=== PATIENT | male | born 1970 | race Caucasian/White ===

== ENCOUNTER 2016-12-19 08:22 | Emergency (ER) | payer MEDICAID ==
[2016-12-19 08:43] VITALS: BP 133/66
--- NOTE | 2016-12-19 09:27 | EDM.PDOC ---
ED HPI GENERAL MEDICAL PROBLEM - General Chief Complaint: Medication Administration Stated Complaint: Rx NEEDED Time Seen by Provider: 12/19/16 08:25 Source of Information: Reports: Patient History Limitations: Reports: No limitations - History of Present Illness INITIAL COMMENTS - FREE TEXT/NARRATIVE: HISTORY AND PHYSICAL: History of present illness: 46-year-old male with a history of asthma, nonsmoker, now presents emergency department complaining of mild wheezing and requesting Proventil prescription. Patient states that he uses his albuterol inhaler daily however he has never used a spacer. He states his symptoms today are typical for him for what he experiences on a daily basis. He denies chest pain or pleurisy. No productive cough or fever. No chills sweats or shaking chills. Patient was offered a respiratory therapy treatment on arrival however she he refuses this and states he just wants a Proventil prescription. Review of systems: As per history of present illness and below otherwise all systems reviewed and negative. Past medical history: As per history of present illness and as reviewed below otherwise noncontributory. Surgical history: As per history of present illness and as reviewed below otherwise noncontributory. Social history: No reported history of drug or alcohol abuse. Family history: As per history of present illness and as reviewed below otherwise noncontributory. Physical exam: HEENT: Atraumatic, normocephalic, pupils reactive, negative for conjunctival pallor or scleral icterus, mucous membranes moist, throat clear, neck supple, nontender, trachea midline. Lungs: Clear to auscultation, breath sounds equal bilaterally, chest nontender. Heart: S1S2, regular, negative for clicks, rubs, or JVD. Abdomen: Soft, nondistended, nontender. Negative for masses or hepatosplenomegaly. Negative for costovertebral tenderness. Pelvis: Stable nontender. Genitourinary: Deferred. Rectal: Deferred. Extremities: Atraumatic, negative for cords or calf pain. Neurovascular unremarkable. Neuro: Awake, alert, oriented. Cranial nerves II through XII unremarkable. Cerebellum unremarkable. Motor and sensory unremarkable throughout. Exam nonfocal. Diagnostics: [] Therapeutics: [] Impression: Asthma exacerbation, wheezing Plan: [Patient with minimal along respirations bilateral however refusing respiratory therapy. Normal respiratory rate and pulse ox. Patient is well-appearing. He is in no acute distress no further work up or treatment is indicated. Patient has no infectious prodrome and chest x-ray not clinically indicated. Patient is requesting an albuterol MDI prescription with 3 refills. I mentioned him that it 's not typical for us to prescribe refills from the emergency department and he says the last time he was here he was given 3 refills. I told patient I was willing to give him a perception for one but he needed followup with his Dr and respect his outpatient doctor patient relationship. Patient was visibly angry because of not being given refills for his prescription until he was entitled to this. Patient agrees with outpatient followup. Strict return precautions given. Definitive disposition and diagnosis as appropriate pending reevaluation and review of above. - Related Data Allergies Allergy/AdvReac Type Severity Reaction Status Date / Time Penicillins Allergy Fever Verified 12/19/16 08:36 Home Meds: Home Meds Albuterol [Proventil HFA] 6.7 gm INH QID 01/23/16 [History] Albuterol [Proventil HFA] 6.7 gm INH Q4H #1 inhaler 12/19/16 [Rx] Past Medical History - Past Health History Medical/Surgical History: Denies Medical/Surgical History HEENT History: Reports: Impaired vision Respiratory History: Reports: Asthma Musculoskeletal History: Reports: Other (see below) Other Musculoskeletal History: previous fracture to left wrist - Infectious Disease History Infectious Disease History: Reports: Chicken pox - Past Surgical History Respiratory Surgical History: Reports: None Musculoskeletal Surgical History: Reports: None Social & Family History - Family History Family Medical History: Noncontributory - Tobacco Use Smoking Status *Q: Never Smoker Years of Tobacco use: 30 Packs/Tins Daily: 0.1 Used Tobacco, but Quit: No Second Hand Smoke Exposure: No - Caffeine Use Caffeine Use: Reports: Coffee - Alcohol Use Days Per Week of Alcohol Use: 1 Number of Drinks Per Day: 6 Total Drinks Per Week: 6 - Recreational Drug Use Recreational Drug Use: No ED ROS GENERAL - Review of Systems Review Of Systems: See Below (History of present illness) ED EXAM, GENERAL - Physical Exam Exam: See Below (C. HPI) Course - Vital Signs Last Recorded V/S: Last Vital Signs Temp 36.6 C 12/19/16 08:38 Pulse 63 12/19/16 08:38 Resp 18 12/19/16 08:38 BP 133/66 03/15/17 08:38 Pulse Ox 97 12/19/16 08:38 Departure - Departure Time of Disposition: 09:24 Disposition: Home, Self-Care 01 Condition: good Clinical Impression: Bronchospasm, acute, Asthma exacerbation, mild Prescriptions: Albuterol [Proventil HFA] 6.7 gm INH Q4H #1 inhaler Instructions: Asthma, Adult Referrals: PCP,None [Primary Care Provider] - [facility] [Outside] Forms: ED Department Discharge Additional Instructions: You have elected not to receive nebulized therapy for your mild asthma exacerbation today. Her respiratory rate and pulse ox symmetry are normal use your inhaler as prescribed as needed and followup with your Dr. tomorrow. Return immediately for new severe or worsening symptoms. The following information is given to patients seen in the emergency department who are being discharged to home. This information is to outline your options for follow-up care. We provide all patients seen in our emergency department with a follow-up referral. The need for follow-up, as well as the timing and circumstances, are variable depending upon the specifics of your emergency department visit. If you don't have a primary care physician on staff, we will provide you with a referral. We always advise you to contact your personal physician following an emergency department visit to inform them of the circumstance of the visit and for follow-up with them and/or the need for any referrals to a consulting specialist. The emergency department will also refer you to a specialist when appropriate. This referral assures that you have the opportunity for follow-up care with a specialist. All of these measure are taken in an effort to provide you with optimal care, which includes your follow-up. Under all circumstances we always encourage you to contact your private physician who remains a resource for coordinating your care. When calling for follow-up care, please make the office aware that this follow-up is from your recent emergency room visit. If for any reason you are refused follow-up, please contact the [facility] Emergency Department at and asked to speak to the emergency department charge nurse.
== END 2016-12-19 09:33 | disposition home or self-care (01) ==
LOC: MW.ED 08:22
DX: J45.901 Unspecified asthma with (acute) exacerbation (principal); Z88.0 Allergy status to penicillin
CPT/HCPCS: 99281; 99283

== ENCOUNTER → 2017-01-14 | Outpatient (CLI) | payer MEDICAID ==
[~2017-01-14] MED LIST: Albuterol 0.083% 2.5 MG/3 ML Neb Soln NEB ONE
== END | disposition home or self-care (01) ==
LOC: MW.CHFP 08:29
PROVIDERS: ATTEND Physician Assistant
DX: J45.909 Unspecified asthma, uncomplicated (principal)
CPT/HCPCS: 94060

== ENCOUNTER 2021-12-22 13:22 | Emergency (ER) | payer SELFPAY ==
[2021-12-22] MEDS ORDERED: Sodium Chloride 0.9% 10 ML Syringe FLUSH PRN (14:13)
[2021-12-22] MEDS ORDERED: Sodium Chloride 0.9% 2.5 ML Syringe FLUSH PRN (14:13)
[2021-12-22] MEDS ORDERED: Albuterol/Ipratropium 3.0-0.5 MG/3 ML Neb Soln NEB ONE (14:15)
[2021-12-22] MEDS ORDERED: Albuterol 8 GM Inhaler INH ONE (14:42)
[2021-12-22 15:18] LABS: BLOOD UREA NITROGEN,BUN 18 mg/dL (7.0-18.0); CARBON DIOXIDE,CO2 25.5 mmol/L (21.0-32.0); CHLORIDE,CL 102 mmol/L (98-107); GLUCOSE RANDOM 94 mg/dL (74-106); LIPASE 88 U/L (73-393); POTASSIUM,K 4.2 mmol/L (3.5-5.1); SODIUM,NA 137 mmol/L (136-148)
[2021-12-22] MEDS ORDERED: Iopamidol 755 MG/ML 500 ML Multipack Bottle IVPUSH ONE (16:20)
[2021-12-22 16:58] VITALS: BP 108/62; PULSE 69
== END 2021-12-22 17:11 | disposition home or self-care (01) ==
LOC: MW.ED 13:22
DX: R14.0 Abdominal distension (gaseous) (principal); Z88.0 Allergy status to penicillin
CPT/HCPCS: 36415; 71045; 74177; 80053; 83690; 83880; 84484; 85025; 93005; 99284; Q9967; A9270-GY

== ENCOUNTER 2024-04-18 09:13 | Emergency (ER) | payer SELFPAY ==
[2024-04-18 09:33] VITALS: BP 125/76; PULSE 75
== END 2024-04-18 10:16 | disposition home or self-care (01) ==
LOC: MW.ED 09:13
DX: Z76.0 Encounter for issue of repeat prescription (principal); J45.909 Unspecified asthma, uncomplicated; Z75.8 Other problems related to medical facilities and other health care; Z88.0 Allergy status to penicillin; Z79.51 Long term (current) use of inhaled steroids
CPT/HCPCS: 99281